=== PATIENT | male | born 1935 | race Caucasian/White ===

== ENCOUNTER 2019-04-21 08:00 | Observation (INO) | payer OTHER ==
[2019-04-16 10:08] VITALS: BP 126/52
[2019-04-16 10:18] LABS: BASOPHILS % (AUTO) 0.2 % (0.0-5.0); EOSINOPHILS % (AUTO) 5.7 % (0.0-8.0); HEMATOCRIT 40.2 % (42-54); LYMPHOCYTES % (AUTO) 16.6 % (21.0-51.0); MEAN CORPUSCULAR VOLUME 94.1 fL (79-99); MONOCYTES % (AUTO) 8.5 % (3.0-13.0); PLATELET COUNT (AUTO) 196 K/uL (130-400); RED BLOOD CELL COUNT(AUTO) 4.27 MIL/uL (4.50-6.20); RED CELL DISTRIBUTION WIDTH 13.2 % (11.0-15.5); WHITE BLOOD COUNT (AUTO) 7.1 K/uL (4.8-10.8)
[2019-04-16 10:19] LABS: APPEARANCE,URINE Clear (CLEAR); BILIRUBIN,URINE Negative (NEGATIVE); COLOR,URINE Yellow (YELLOW); GLUCOSE, URINE (UA) Negative (NEGATIVE); KETONES,URINE Negative (NEGATIVE); LEUKOCYTE ESTERASE ,URINE Negative (NEGATIVE); NITRATE,URINE Negative (NEGATIVE); OCCULT BLOOD,URINE Negative (NEGATIVE); PROTEIN,URINE Negative (NEGATIVE); UROBILINOGEN,URINE 0.2 mg/dL (0.2-1.0)
[2019-04-16 10:24] LABS: CREATININE 1.4 mg/dL (0.5-1.5); POTASSIUM 4.7 mmol/L (3.5-5.1)
[2019-04-16 10:27] LABS: PARTIAL THROMBOPLASTIN TIME 28.9 SEC (26.3-35.5); PROTHROMBIN TIME 10.5 SEC (9.6-11.6)
--- NOTE | 2019-04-20 16:46 | NUR ---
ABNORMAL CREAT LEVEL REPORTED TO PAULETTE FUCHS NO NEW ORDERS RECEIVED.
[~2019-04-21] VITALS: Ht 177.8 cm; Wt 83.5 kg
[2019-04-21] VITALS (26 sets, daily range): BP systolic 52–194; BP diastolic 36–74
[~2019-04-21 08:00] MED LIST: ASPI-555 PO; CLOP75TA14 PO; FINA5TAB41 PO; FISH OIL; LINA290C PO; LISI10TA7 PO; METO-408 PO; MULT-1203 PO; OXYB5TAB15 PO; SIMV-43 PO; SODIUM CHLORIDE 0.9% 1000ML 1,000 ML IV ONE; SODIUM CHLORIDE 0.9% 500ML 500 ML IV SCH; TAMS-1 PO; UBID1CAP2 PO
[2019-04-21] MEDS ORDERED: MIDAZOLAM HCL 1 MG/ML 2ML VIAL ONE ×3 (09:20→13:04)
[2019-04-21] MEDS ORDERED: FENTANYL CITRATE PF 50 MCG/1 ML 2ML VIAL ONE (09:21)
[2019-04-21] MEDS ORDERED: LIDOCAINE HCL 2% VISCOUS 15 ML UDCUP ONE (09:22)
--- NOTE | 2019-04-21 10:33 | NUR ---
RAYMOND RAYMOND PERFORMED BY DR. Arnold BROOKE WITH Frank MATOS DIRECTOR OF KIDS, PT LINDSAY PROCEDURE WELL. NO ADVERSE REACTION NOTED. FIRST MEDICATION GIVEN 0945- VERSED 2MG IVP/ FENTANYL 25MCG IVP 0948 -VERSED 2MG IVP/FENTANYL 25MCG IVP RAYMOND STARTED AT 0951 - COMPLETED AT 1005- DR. Arnold BROOKE SPOKE TO FAMILY ABOUT RAYMOND FINDINGS
[2019-04-21] MEDS ORDERED: IOHEXOL-350 50ML VIAL IV ONE ×2 (10:54→13:01)
[2019-04-21] MEDS ORDERED: SODIUM BICARB 50MEQ 50ML VIAL ONE (10:54)
[2019-04-21] MEDS ORDERED: HEPARIN SODIUM 1000UNIT/ML 10ML VIAL ONE (10:54)
[2019-04-21] MEDS ORDERED: LIDOCAINE HCL 2% 20ML ONE (10:54)
[2019-04-21] MEDS ORDERED: NITROGLYCERIN 5 MG/ML 10 ML VIAL IV ONE (10:54)
[2019-04-21] MEDS ORDERED: IOHEXOL 350 MG/ML 100ML INFUS..BTL IV ONE ×2 (10:54→13:01)
[2019-04-21] MEDS ORDERED: ATROPINE SULFATE 0.1 MG/ML 10 ML SYG IVP ONE (12:19)
[2019-04-21] MEDS ORDERED: MEPERIDINE-PF 25 MG/ML SYG ONE (13:04)
[2019-04-21] MEDS ORDERED: CLOPIDOGREL BISULFATE 75 MG TAB ONE (13:23)
[2019-04-21] MEDS ORDERED: ASPIRIN 81MG TAB.CHEW ONE (13:23)
[2019-04-21] MEDS: SODIUM CHLORIDE 0.9% 1000ML 1,000 ML IV SCH ×2 (13:28→23:28)
[2019-04-21] MEDS ORDERED: HYDRALAZINE HCL 20 MG/ML VIAL IV PRN (13:30)
[2019-04-21] MEDS ORDERED: ONDANSETRON HCL 4 MG/2 ML VIAL IVP PRN (13:30)
[2019-04-21] MEDS ORDERED: ACETAMINOPHEN-CODEINE 300/30MG TAB PO PRN (13:30)
--- NOTE | 2019-04-21 14:25 | NUR ---
PT GIVEN 10MG OF HYDRALAZINE FOR BP ABOVE 160. PT BP 174/58
--- NOTE | 2019-04-21 14:27 | NUR ---
CALL [facility] OF [facility] TO ADMIT PT. WAITING FOR CALL BACK.
--- NOTE | 2019-04-21 14:35 | NUR ---
121/36 B/P AFTER 10 MG IVP OF HYDRALAZINE
--- NOTE | 2019-04-21 14:36 | NUR ---
SPOKE WITH METAL WINDOW SCREEN ASSEMBLER FERNANDA FROM DR. HALL WILL COME AND SEE PT.
--- NOTE | 2019-04-21 15:04 | NUR ---
CHANTEL MALONEY DIRECTOR CONSUMER AFFAIRS CAME TO SEE PT, WILL PUT IN MORPHINE FOR PT. PAIN.
[2019-04-21] MEDS: ACETAMINOPHEN-CODEINE 300/30MG TAB PO PRN ×2 (15:15→19:16)
--- NOTE | 2019-04-21 16:34 | NUR ---
REPORT GIVEN TO LYNDON KENT RN, PT. DRESSING DRY AND INTACT NO BLEEDING, NO HEMATOMA, DP BILATERAL INTACT. PT STABLE.
[2019-04-21] MEDS: MULTIVITAMIN TABLET PO SCH (17:00)
--- NOTE | 2019-04-21 18:35 | NUR ---
RECEIVED FROM DAYPT. VIA BED. RIGHT GROIN WITH SLIGHT FIRMNESS NOTED; PRESSURE APPLIED. INSTRUCTED PT., PT.'S SON AND DAUGHTER AT BEDSIDE RE:RATIONALE FOR PRESSURE, VERBALIZED UNDERSTANDING.
--- NOTE | 2019-04-21 18:55 | NUR ---
20MIN MANUAL PRESSURE APPLIED. RIGHT GROIN SOFT, NO HEMATOMA AFTER PRESSURE APPLIED. PP'S STRONG. DENIES ANY C/O NUMBNESS OR TINGLING TO FOOT. INSTRUCTED PT. ON CONTINUED BR, VERBALIZED UNDERSTANDING. CALL LIGHT WITHIN REACH, VERBALIZED ABILITY TO USE. PT.'S SON AND DAUGHTER REMAIN AT BEDSIDE.
--- NOTE | 2019-04-21 19:04 | NUR ---
1635 DRESSING TO RT GROIN HAS TONA SIZE AMOUNT OF BLOOD, BRUISING NOTE TO SITE. SLIGHT SWELLING NOTED TO GROIN SITE. BLOOD MARKED WITH PEN TO DRESSING. MANUAL PRESSURE APPLIED TO PUNCTURE SITE FOR TEN MINUTES. PT STATES SITE FEELS TENDER. PULSES STRONG TO RT DISTAL DORSALIS PEDIS. WILL CONTINUE TO MONITOR PT.
--- NOTE | 2019-04-21 19:08 | NUR ---
1825 REPORT GIVEN TO BEV RN , PT TRANSFERRED TO 223 ON BED. PERSONAL BELONGINGS AND DAUGHTER , SON AT BEDSIDE. PT STABLE, VITALS STABLE. DRESSING TO RT GROIN MARKED WITH TONA SIZE PATCH OF BLOOD, SLIGHT SWELLING NOTED, AREA ON DRESSING PATCH MARKED WITH PEN. INFORMED BEV OF GROIN SITE, AND MANUAL PRESSURE HELD TWICE, OOZING HAS RESOLVED, CATH SITE HAS BEEN MONITORED. LAST TIME HELD PRESSURE WAS 10 MINUTES PRIOR TO GIVING REPORT. 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 RN ON ARRIVAL AWARE OF SITE, AND BEGAN HOLDING PRESSURE TO SITE FOR 20 MINUTES. PT STABLE, NO DISTRESS.
--- NOTE | 2019-04-21 20:00 | NUR ---
PATIENT AWAKE AND ALERT. RT GROIN SITE APPEARS SOFT TO PALPATION. DRESSING DRAINAGE MARKED, NO FURTHER DRAINAGE NOTED.
[2019-04-21] MEDS: OXYBUTYNIN CHLORIDE 5 MG TABLET PO SCH (20:43)
[2019-04-21] MEDS: TAMSULOSIN HCL 0.4 MG CAP.ER.24H PO SCH (20:43)
[2019-04-21] MEDS: UBIDECARENONE PO SCH (20:44)
[2019-04-21] MEDS: VITAMIN E PO SCH (20:44)
[2019-04-21] MEDS: LISINOPRIL 10 MG TABLET PO SCH (20:44)
[2019-04-21] MEDS ORDERED: CLOPIDOGREL BISULFATE 75 MG TAB PO SCH (21:00)
[2019-04-21] MEDS ORDERED: FINASTERIDE 5 MG TABLET PO SCH (21:00)
[2019-04-21] MEDS ORDERED: SIMVASTATIN 20 MG TABLET PO SCH (21:00)
[2019-04-21] MEDS: MORPHINE SULFATE 2 MG/ML 1ML SYG IM PRN ×2 (21:34→21:38)
--- NOTE | 2019-04-22 00:05 | NUR ---
RT GROIN SITE APPEARS SOFT TO PALPATION. NO FURTHER DRAINAGE NOTED FROM MARKED DRESSING.
[2019-04-22] MEDS: MORPHINE SULFATE 2 MG/ML 1ML SYG IM PRN (02:36)
[2019-04-22 03:44] VITALS: BP 145/75
[2019-04-22 04:37] LABS: HEMATOCRIT 36.9 % (42-54); MEAN CORPUSCULAR HEMOGLOBIN 30.5 pg (27.0-33.0); MEAN CORPUSCULAR HGB CONC 33.1 g/dL (32.0-36.0); MEAN CORPUSCULAR VOLUME 92.3 fL (79-99); PLATELET COUNT (AUTO) 152 K/uL (130-400); RED CELL DISTRIBUTION WIDTH 12.5 % (11.0-15.5); WHITE BLOOD COUNT (AUTO) 7.1 K/uL (4.8-10.8)
[2019-04-22 05:02] LABS: CREATININE 1.2 mg/dL (0.5-1.5); POTASSIUM 4.3 mmol/L (3.5-5.1)
[2019-04-22] MEDS: LISINOPRIL 10 MG TABLET PO SCH (07:42)
[2019-04-22] MEDS: TAMSULOSIN HCL 0.4 MG CAP.ER.24H PO SCH (07:43)
[2019-04-22] MEDS: VITAMIN E PO SCH (07:43)
[2019-04-22] MEDS: OXYBUTYNIN CHLORIDE 5 MG TABLET PO SCH (07:43)
[2019-04-22] MEDS: UBIDECARENONE PO SCH (07:43)
[2019-04-22] MEDS: MULTIVITAMIN TABLET PO SCH (07:43)
[2019-04-22 07:47] VITALS: BP 160/66
--- NOTE | 2019-04-22 08:00 | NUR ---
ASSESSMENT PT IS AAOX3 DENIES CP DENIES SOB DENIES NV NO COMPLAINTS RESTING IN BED ASSISTED UP TO CHAIR. RIGHT GROIN SOFT WITH MINIMAL BRUISING NOTED TO SITE, NO HEMATOMA NOTED. BREATHING PATTERN IS EVEN AND UNLABORED. AM MEDS GIVEN. CALL LIGHT WITHIN REACH.
[2019-04-22] MEDS ORDERED: ASPIRIN 81 MG EC TAB PO SCH (09:00)
--- NOTE | 2019-04-22 10:09 | NUR ---
DISCHARGE PATIENT VERBALIZES DC INSTRUCTION UNDERSTANDING, AGREES TO TAKE MEDS ORDERED, AGREES TO FOLLOW UP WITH DR BROOKE OUTPT. ALL QUESTIONS ANSWERED, PIV REMOVED, CATH TIP INTACT, TELE PACK REMOVED. AWAITING RIDE.
== END 2019-04-22 10:32 | disposition home or self-care (01) ==
LOC: DAH 08:00 → DAHIP 08:01 → 2DH 18:24
PROVIDERS: ADMIT Internal Medicine Pulmonary Disease; ATTEND Internal Medicine Pulmonary Disease
DX: I25.810 Atherosclerosis of coronary artery bypass graft(s) without angina pectoris (principal); I25.5 Ischemic cardiomyopathy; I08.0 Rheumatic disorders of both mitral and aortic valves; I11.0 Hypertensive heart disease with heart failure; I50.20 Unspecified systolic (congestive) heart failure; E78.5 Hyperlipidemia, unspecified; I65.29 Occlusion and stenosis of unspecified carotid artery; Z95.2 Presence of prosthetic heart valve; Z95.1 Presence of aortocoronary bypass graft; Z79.899 Other long term (current) drug therapy
CPT/HCPCS: 36415; 71045; 80048; 80061; 81003; 85025; 85027; 85347; 85610; 85730; 93005; 93313; 93460; 93567; 96372; 96374; 99152; 99153; 99156; 99157; A4606; C1760; C1769; C1887; C1894; C9600; G0378; J0360; J0461; J1644; J2175; J2250; J3010; J3490; J7030; Q9967

== ENCOUNTER → 2019-06-30 | Outpatient (CLI) | payer OTHER ==
[~2019-06-30] MED LIST changes: -METO-408 PO; -SODIUM CHLORIDE 0.9% 1000ML 1,000 ML IV ONE; -SODIUM CHLORIDE 0.9% 500ML 500 ML IV SCH
[2019-06-30 12:30] LABS: CREATININE 1.5 mg/dL (0.5-1.5)
== END | disposition home or self-care (01) ==
LOC: LAB 11:31
PROVIDERS: ATTEND Internal Medicine Cardiovascular Disease
DX: I25.10 Atherosclerotic heart disease of native coronary artery without angina pectoris (principal); I35.1 Nonrheumatic aortic (valve) insufficiency; Z95.2 Presence of prosthetic heart valve
CPT/HCPCS: 36415; 82565; 84520

== ENCOUNTER → 2019-07-07 | Outpatient (CLI) | payer OTHER ==
[~2019-07-07] MED LIST changes: +IOHEXOL 350 MG/ML 100ML INFUS..BTL IV ONE
== END | disposition home or self-care (01) ==
LOC: RAH 08:45
PROVIDERS: ATTEND Internal Medicine Cardiovascular Disease
DX: I05.9 Rheumatic mitral valve disease, unspecified (principal); I70.0 Atherosclerosis of aorta; I25.10 Atherosclerotic heart disease of native coronary artery without angina pectoris; I35.1 Nonrheumatic aortic (valve) insufficiency; N28.1 Cyst of kidney, acquired; J98.11 Atelectasis; K57.90 Diverticulosis of intestine, part unspecified, without perforation or abscess without bleeding; M40.294 Other kyphosis, thoracic region; M47.814 Spondylosis without myelopathy or radiculopathy, thoracic region; Z90.49 Acquired absence of other specified parts of digestive tract; Z95.2 Presence of prosthetic heart valve
CPT/HCPCS: 74174; 75574; Q9967